=== PATIENT | female | born 1970 | race Two or more races ===

== ENCOUNTER 2024-08-13 05:30 | Day surgery (SDC) | payer OTHER ==
[~2024-08-13 05:30] MED LIST: FLUOXETINE HCL10 MG; [UNRECOGNIZED DRUG - OTHER]
[2024-08-13] MEDS ORDERED: POVIDONE-IODINE 118 ML BOTT TOP ONE (07:30)
[2024-08-13] MEDS ORDERED: IBU600 MG PO (08:30)
== END 2024-08-13 15:20 | disposition home or self-care (01) ==
LOC: CIR.AMB 05:30
PROVIDERS: ATTEND Obstetrics & Gynecology Gynecology
DX: N84.0 Polyp of corpus uteri (principal); N72 Inflammatory disease of cervix uteri; N95.0 Postmenopausal bleeding